=== PATIENT | female | born 1965 | race Caucasian/White ===

== ENCOUNTER 2017-08-23 12:38 | Observation (INO) ==
[2017-08-23] MEDS ORDERED: HYDROmorphone 2 MG/1 ML VIAL IV STA (13:31)
[2017-08-23] MEDS ORDERED: ONDANSETRON 4 MG/2 ML VIAL IV STA (13:31)
[2017-08-23] MEDS ORDERED: ONDANSETRON 4 MG/2 ML VIAL ONE (13:33)
[2017-08-23] MEDS ORDERED: HYDROmorphone 2 MG/1 ML VIAL ONE (13:33)
[2017-08-23 14:04] LABS: Basophils # 0.1 10*3/uL (0.0-0.2); Basophils % 0.5 % (0.0-0.8); Eosinophils # 0.2 10*3/uL (0.0-0.87); Eosinophils % 1.3 % (0.00-10.9); Hematocrit 35.9 VOL% (35.7-47.0); Hemoglobin 12.7 GM/DL (12.0-16.0); Immature Granulocytes % 0.5 %; Immature Granulocytes Absolute 0.07 #; Lymphocytes # 2.1 10*3/uL (1.4-4.0); Lymphocytes % 13.6 % (21.3-54.2); Mean Corpuscular HGB Conc 35.4 GM/DL (32-36); Mean Corpuscular Hemoglobin 33 PG (27-34); Mean Corpuscular Volume 93.2 FL (87-102); Mean Platelet Volume 10.3 FL (9.6-12.0); Monocytes # 0.8 10*3/uL (0.11-0.8); Monocytes % 5.1 % (1.7-12.7); Neutrophils # 12.1 10*3/uL (1.4-7.4); Platelet Count 302 T/CUMM (130-400); Red Blood Count 3.85 MC/CUMM (3.8-5.5); Red Cell Distribution Width 12.6 % (9.3-17.3); White Blood Count 15.4 T/CUMM (4-12)
[2017-08-23 14:13] LABS: Alanine Aminotransferase 36 U/L (13-56); Albumin 3.6 G/DL (3.4-5.0); Alkaline Phosphatase 135 U/L (45-117); Aspartate Amino Transferase 25 U/L (0-37); Bilirubin,Total < 0.39 MG/DL (0.2-1.0); Blood Urea Nitrogen 13 MG/DL (7-18); Calcium 8.7 MG/DL (8.5-10.1); Glucose 107 MG/DL (74-106); Osmolality,Calculated 272.8 MOS/KG (273-304); Potassium 4.1 MMOL/L (3.5-5.1); Sodium 137 MMOL/L (136-145); Total Protein 6.7 G/DL (6.4-8.3)
[2017-08-23] MEDS ORDERED: ONDANSETRON 4 MG/2 ML VIAL IV PRN (14:20)
[2017-08-23] MEDS ORDERED: ACETAMINOPHEN 325 MG TABLET PO PRN (14:20)
[2017-08-23] MEDS: HYDROXYCHLOROQUINE 200 MG TABLET PO SCH (21:59)
[2017-08-23] MEDS: CHOLECALCIFEROL 1,000 UNIT TABLET PO SCH (21:59)
[2017-08-23] MEDS: MAGNESIUM CHLORIDE 64 MG TABLET PO SCH (21:59)
[2017-08-23] MEDS: ESCITALOPRAM 10 MG TABLET PO SCH (21:59)
[2017-08-23] MEDS: SELENIUM 200 MCG TABLET PO SCH (21:59)
[2017-08-23] MEDS: RAMIPRIL 5 MG CAPSULE PO SCH (21:59)
[2017-08-23] MEDS: ASCORBIC ACID 500 MG TABLET PO SCH (21:59)
[2017-08-23] MEDS: CARVEDILOL 25 MG TABLET PO SCH (22:00)
[2017-08-23] MEDS: ETODOLAC 400 MG PO SCH (22:04)
[2017-08-23] MEDS: HYDROmorphone 2 MG/1 ML VIAL IV PRN (22:13)
[2017-08-23] MEDS: NORTRIPTYLINE 25 MG CAPSULE PO SCH (22:13)
[2017-08-24] MEDS: THYROID 60 MG TABLET PO SCH (06:22)
[2017-08-24 08:20] LABS: Basophils % 0.4 % (0.0-0.8); Eosinophils # 0.2 10*3/uL (0.0-0.87); Eosinophils % 1.9 % (0.00-10.9); Hematocrit 28.4 VOL% (35.7-47.0); Hemoglobin 9.9 GM/DL (12.0-16.0); Immature Granulocytes % 0.6 %; Immature Granulocytes Absolute 0.06 #; Lymphocytes # 2.2 10*3/uL (1.4-4.0); Lymphocytes % 19.9 % (21.3-54.2); Mean Corpuscular HGB Conc 34.9 GM/DL (32-36); Mean Corpuscular Hemoglobin 33 PG (27-34); Mean Corpuscular Volume 95.6 FL (87-102); Mean Platelet Volume 10.5 FL (9.6-12.0); Monocytes # 0.8 10*3/uL (0.11-0.8); Monocytes % 7.6 % (1.7-12.7); Neutrophils # 7.5 10*3/uL (1.4-7.4); Neutrophils % 69.6 % (38.7-73.9); Platelet Count 249 T/CUMM (130-400); Red Blood Count 2.97 MC/CUMM (3.8-5.5); Red Cell Distribution Width 12.8 % (9.3-17.3); White Blood Count 10.8 T/CUMM (4-12)
[2017-08-24 08:55] LABS: Calcium 8.7 MG/DL (8.5-10.1); Osmolality,Calculated 276.8 MOS/KG (273-304); Potassium 4.8 MMOL/L (3.5-5.1)
[2017-08-24] MEDS ORDERED: ESTRADIOL TRANSDERM SCH (09:00)
[2017-08-24] MEDS: FOLIC ACID 1 MG TABLET PO SCH (09:03)
[2017-08-24] MEDS: HYDROXYCHLOROQUINE 200 MG TABLET PO SCH ×2 (09:03→20:14)
[2017-08-24] MEDS: PANTOPRAZOLE 40 MG TABLET PO SCH (09:04)
[2017-08-24] MEDS: RAMIPRIL 5 MG CAPSULE PO SCH (09:04)
[2017-08-24] MEDS: CARVEDILOL 25 MG TABLET PO SCH ×2 (09:04→17:33)
[2017-08-24] MEDS: MAGNESIUM CHLORIDE 64 MG TABLET PO SCH ×2 (09:04→20:13)
[2017-08-24] MEDS ORDERED: LACTATED RINGERS 1,000 ML IV SCH (10:30)
[2017-08-24] MEDS: HYDROmorphone 2 MG/1 ML VIAL IV PRN (20:11)
[2017-08-24] MEDS: SELENIUM 200 MCG TABLET PO SCH (20:11)
[2017-08-24] MEDS: NORTRIPTYLINE 25 MG CAPSULE PO SCH (20:12)
[2017-08-24] MEDS: ESCITALOPRAM 10 MG TABLET PO SCH (20:12)
[2017-08-24] MEDS: ASCORBIC ACID 500 MG TABLET PO SCH (20:12)
[2017-08-24] MEDS: CHOLECALCIFEROL 1,000 UNIT TABLET PO SCH (20:13)
[2017-08-24] MEDS: ETODOLAC 400 MG PO SCH (20:14)
[2017-08-25] MEDS: HYDROmorphone 2 MG/1 ML VIAL IV PRN (02:06)
[2017-08-25 06:25] LABS: Calcium 8.3 MG/DL (8.5-10.1); Osmolality,Calculated 280.4 MOS/KG (273-304); Potassium 4.5 MMOL/L (3.5-5.1)
[2017-08-25 06:29] LABS: Basophils # 0.1 10*3/uL (0.0-0.2); Basophils % 0.6 % (0.0-0.8); Eosinophils # 0.3 10*3/uL (0.0-0.87); Eosinophils % 3.4 % (0.00-10.9); Hematocrit 25.8 VOL% (35.7-47.0); Hemoglobin 9.1 GM/DL (12.0-16.0); Immature Granulocytes % 0.5 %; Immature Granulocytes Absolute 0.05 #; Lymphocytes # 2.7 10*3/uL (1.4-4.0); Lymphocytes % 27.8 % (21.3-54.2); Mean Corpuscular HGB Conc 35.3 GM/DL (32-36); Mean Corpuscular Hemoglobin 34 PG (27-34); Mean Corpuscular Volume 95.6 FL (87-102); Mean Platelet Volume 10.3 FL (9.6-12.0); Monocytes # 0.8 10*3/uL (0.11-0.8); NRBC # 0.05 10*3/uL; Neutrophils # 5.7 10*3/uL (1.4-7.4); Neutrophils % 59.7 % (38.7-73.9); Platelet Count 240 T/CUMM (130-400); Red Cell Distribution Width 12.9 % (9.3-17.3); White Blood Count 9.6 T/CUMM (4-12)
[2017-08-25] MEDS: THYROID 60 MG TABLET PO SCH (07:22)
[2017-08-25] MEDS: PANTOPRAZOLE 40 MG TABLET PO SCH (07:59)
[2017-08-25] MEDS: HYDROXYCHLOROQUINE 200 MG TABLET PO SCH (07:59)
[2017-08-25] MEDS: CARVEDILOL 25 MG TABLET PO SCH (08:00)
[2017-08-25] MEDS: FOLIC ACID 1 MG TABLET PO SCH (08:00)
[2017-08-25] MEDS: MAGNESIUM CHLORIDE 64 MG TABLET PO SCH (08:00)
[2017-08-25 12:40] LABS: Hemoglobin 9.6 GM/DL (12.0-16.0)
[2017-08-25 14:10] VITALS: BP 122/66
[2017-08-25] MEDS ORDERED: DIPH/TET/ACEL PERT BOOSTER VACCINE 0.5 ML VIAL IM ONE (14:52)
[2017-09-02] MEDS ORDERED: METHOTREXATE 2.5 MG TABLET PO SCH (09:00)
== END 2017-08-25 16:10 | disposition home or self-care (01) ==
LOC: EDUNIT# → EDBD → N.EDINP 12:38 → N.ED 12:38 → N.5E 14:50
PROVIDERS: ADMIT Surgery; ATTEND Surgery